=== PATIENT | female | born 1980 | race Caucasian/White ===

== ENCOUNTER 2024-12-03 12:18 | Emergency (ER) | payer OTHER ==
[~2024-12-03] VITALS: Ht 165.1 cm; Wt 121.0 kg
[2024-12-03 12:24] VITALS: O2SAT 100
[2024-12-03] MEDS: TETANUS, DIPHTHERIA, PERTUSSIS VAC/PF 0.5ML (>10YR OLD) IM ONE (13:45)
[2024-12-03] MEDS ORDERED: LIDOCAINE HCL/EPINEPHRINE 1%-EPI 1:100,000 20ML VIAL INFIL ONE (13:45)
[2024-12-03] MEDS ORDERED: BO1 TP (15:41)
[2024-12-03] MEDS: LIDOCAINE HCL/EPINEPHRINE 1%-EPI 1:100,000 20ML VIAL INFIL SCH (15:50)
[2024-12-03 16:30] VITALS: BP 147/87; PULSE 85; RESP 18; TEMP 36.4; O2SAT 100
== END 2024-12-03 16:35 | disposition home or self-care (01) ==
LOC: ER 12:18
DX: S01.81XA Laceration without foreign body of other part of head, initial encounter (principal); Z79.899 Other long term (current) drug therapy; W20.8XXA Other cause of strike by thrown, projected or falling object, initial encounter; Y93.89 Activity, other specified; Y92.89 Other specified places as the place of occurrence of the external cause; Y99.8 Other external cause status
CPT/HCPCS: 99284; 70450; 81025; 12013; J2004; 90715